=== PATIENT | male | born 1935 | race Caucasian/White ===

== ENCOUNTER 2018-03-27 09:36 | Inpatient (IN) ==
[2018-03-27 09:42] LABS: ABG Base Excess -8.2 mmol/L (-2.4-2.3); ABG HCO3 18.5 mmhg (22.0-26.0); ABG Oxygen Saturation 96 % (90-100); ABG PCO2 39.8 mmhg (35.0-45.0); ABG PH 7.29 mmol/L (7.35-7.45); ABG PO2 90.5 mmhg (80-100); ABG TCO2 19.7 mmhg (23-27)
[2018-03-27 09:43] LABS: Allen's Test ACCEPTABLE; Oxygen 3 LPM %
[2018-03-27 09:46] LABS: Basophils % 0.3 % (0.1-2.0); Eosinophils # 0.1 K/mm3 (0.0-0.4); Eosinophils % 0.6 % (0.1-12.0); Hematocrit 34.7 % (42.0-52.0); Lymphocytes # 0.9 K/mm3 (0.7-4.5); Mean Corpuscular HGB Conc 31.9 g/dL (31.8-35.4); Mean Corpuscular Hemoglobin 27.5 pg (27.0-31.2); Mean Corpuscular Volume 86.4 fl (80-94); Mean Platelet Volume 7.2 fl (7.4-10.4); Monocytes # 0.8 K/mm3 (0.1-1.0); Monocytes % 6.2 % (1.7-9.3); Neutrophils # 11.3 K/mm3 (1.8-7.8); Neutrophils % 85.9 % (37.0-80.0); Platelet Count 211 K/mm3 (142-424); Red Blood Count 4.01 M/mm3 (4.60-6.20); Red Cell Distribution Width 13.9 % (11.5-17.5); White Blood Count 13.2 K/mm3 (4.8-10.8)
[2018-03-27 10:14] LABS: Albumin Level 2.4 gm/dL (3.4-5.0); Albumin/Globulin Ratio 0.5 (1.1-1.8); Anion Gap 13.1 mEq/L (5-15); Bilirubin,Total 0.5 mg/dL (0.2-1.0); Calcium 7.9 mg/dL (8.5-10.1); Globulin 4.5 gm/dl (1.3-3.2); Potassium 5.1 mmoL/L (3.5-5.1); Total Protein,Serum 6.9 gm/dL (6.4-8.2)
--- NOTE | 2018-03-27 10:37 | Emergency Department Note ---
ED Disposition Clinical Impression: Metabolic acidosis, Acute respiratory failure with hypoxia Community acquired pneumonia Qualifiers: Laterality: unspecified laterality Qualified Code(s): J18.9 - Pneumonia, unspecified organism Sepsis Qualifiers: Sepsis type: sepsis due to unspecified organism Qualified Code(s): A41.9 - Sepsis, unspecified organism Acute on chronic renal failure Qualifiers: Acute renal failure type: unspecified Chronic kidney disease stage: unspecified stage Qualified Code(s): N17.9 - Acute kidney failure, unspecified Disposition: Still a Patient Condition on Discharge: Serious Referrals: Trae Weiner MD [Primary Care Provider] - - Critical Care Critical Care Time: Yes Attestation: On 03/27/18, the high probability of a clinically significant, sudden or life threatening deterioration of the following system(s) required my full and direct attention, intervention and personal management. The time I documented below is in addition to time spent performing reported procedures but includes the following listed in this critical care notation. Total Critical Care Time: 35 Vital system(s) involved:: Circulatory Failure, Respiratory Failure, Shock (Septic) My critical care processes included: Assessment & monitoring of V/S, Initial and Re-exams, Data Review/Interpretation, Coordinating Care, Medication Orders and management, Documentation Medical Decision Making - [place] Inquiry Pt receiving controlled substance: No Vital Signs: 03/27/18 09:12 Temperature 97.8 F Temperature Source Oral Pulse Rate [Right Brachial] 87 Respiratory Rate 24 Blood Pressure [Right Arm] 104/72 L Blood Pressure Mean [Right Arm] 82 Blood Pressure Source [Right Arm] Automatic Cuff Blood Pressure Position [Right Arm] Sitting 02 Sat by Pulse Oximetry 88 L Oxygen Delivery Method Room Air - Lab Data Lab Results 03/27/18 09:16: Specimen Source L. radial, O2 % 3 lpm, ABG pH 7.29 L, ABG pCO2 39.8, ABG pO2 90.5, ABG HCO3 18.5 L, ABG Total CO2 19.7 L, ABG O2 Saturation 96, ABG Base Excess -8.2 L, Mark Test Acceptable 03/27/18 09:40: WBC 13.2 H, RBC 4.01 L, Hgb 11.0 L, Hct 34.7 L, MCV 86.4, MCH 27.5, MCHC 31.9, RDW 13.9, Plt Count 211, MPV 7.2 L, Neut % (Auto) 85.9 H, Lymph % (Auto) 7.0 L, [place] % (Auto) 6.2, Eos % (Auto) 0.6, Baso % (Auto) 0.3, Neut # (Auto) 11.3 H, Lymph # (Auto) 0.9, [place] # (Auto) 0.8, Eos # (Auto) 0.1, Baso # (Auto) 0.0, Total Counted 100, Neutrophils % (Manual) 87 H, Band Neutrophils % 1.0, Lymphocytes % (Manual) 5 L, Monocytes % (Manual) 7, Platelet Estimate Normal 03/27/18 09:40: Sodium 130 L, Potassium 5.1, Chloride 97 L, Carbon Dioxide 25, Anion Gap 13.1, BUN 56 H, Creatinine 3.21 H, Estimated Creat Clear 23, Estimated GFR 19 L*, Est GFR ( Amer) 23 L, Glucose 108 H, Calcium 7.9 L, Total Bilirubin 0.5, AST 24, ALT 13, Alkaline Phosphatase 127 H, Total Creatine Kinase 385 H, CK-MB (CK-2) 2.8, CK-MB (CK-2) Rel Index 0.7, Troponin I 0.39 H, Total Protein 6.9, Albumin 2.4 L, Globulin 4.5 H, Albumin/Globulin Ratio 0.5 L 03/27/18 09:40: Lactate 0.7 03/27/18 09:40: B-Natriuretic Peptide 684 H Result diagrams: 03/27/18 09:40 03/27/18 09:40 Orders (Tests/Meds): ED MEDICATIONS Generic Name Dose Route Start Last Admin Trade Name Freq PRN Reason Stop Dose Admin Sodium Chloride 3 ml 03/27/18 09:29 Sodium Chloride 3% 15ml Neb IH 04/26/18 09:28 ONCE PRN INDUCE SPUTUM COLLECTION ORDERS Category Date Time Status Blood Culture Stat Micro 03/27/18 09:40 Received Sputum Culture & Gram Stain Stat Micro 03/27/18 09:35 Received - Radiology Data #1 Image(s): Chest Image Reviewed: Yes I have reviewed radiologist's interpretation Bilateral lower lobe infiltrates, pneumonia - Physician Consults Physician Consulted: Husam Time: 10:40 Reason -: Admission Comment/Response: Agrees to admit the patient to the hospital. We discussed the patient's clinical information, including history, exam, laboratory and radiology results and ED course. Per hospital procedure, I will write temporary bridge inpatient orders on the patient. Specific orders requested by the admitting physician: Antibiotics, IV fluids, nebulizer treatments, oxygen. No steroids. Serial troponins. General Adult HPI - General Chief complaint: Shortness of Breath/Dyspnea Stated complaint: soa Time Seen by Provider: 03/27/18 10:20 Mode of Arrival: EMS Limitations: No Limitations Description of Symptoms (Recalled from ER Triage Doc. by RN): shortness of air - History of Present Illness HPI narrative: Brought in by ambulance. History from family. Patient has a prior history of a stroke with resultant speech problem, unable to be understood per family. Family states that he has declined over the past week. Has a cough producing yellow sputum. Past 2 days has gotten worse. No fever. Today he had an episode where his eyes rolled back in his head and he was drenched in sweat. - Related Data Home Medications Medication Instructions Recorded Confirmed Colestipol HCl 1 gm PO BID 03/27/18 03/27/18 Diphenoxylate HCl/Atropine 2 each PO HS 03/27/18 03/27/18 [Lomotil 2.5-0.025 mg Tablet] Quetiapine Fumarate [Seroquel] 50 mg PO HS 03/27/18 03/27/18 Simvastatin 10 mg PO DAILY 03/27/18 03/27/18 Tamsulosin HCl [Flomax 0.4mg 0.4 mg PO HS 03/27/18 03/27/18 capsule] Allergies Allergy/AdvReac Type Severity Reaction Status Date / Time No Known Allergies Allergy Unverified 05/22/17 15:06 [facility] History I have reviewed the patient's past medical history: Yes - Social History Educational Level: Completed High School Smoking Status: Unknown if ever smoked Alcohol Intake: never - Psychiatric History Expresses thoughts of harming self/others: None Suicide Plan Description: No Plan ROS Obtained: Yes unobtainable due to mental condition (Prior stroke) Physical Exam - General General appearance: alert, in no apparent distress - Head Head exam: atraumatic, normocephalic - Chest Chest inspection: Present: normal inspection, symmetric chest wall rise - Respiratory Respiratory exam: Present: other (Bilateral crackles). Absent: respiratory distress - Cardiovascular Cardiovascular exam: Present: regular rate, normal rhythm - Abdominal Exam Abdominal exam: Present: soft. Absent: distention, tenderness - Extremities Exam Extremities exam: Present: normal inspection - Neurological Exam Neurological exam: Present: alert, other (Right hemiparesis. Dysarthria. Blind in right eye.) - Psychiatric Psychiatric exam: Present: normal affect - Skin Skin exam: Present: warm, dry
[2018-03-27 10:41] LABS: Lymphocytes % 5 % (10-50); Monocytes % 7 % (2-9); Neutrophils % 87 % (42-76); Total Cells Counted 100
--- NOTE | 2018-03-27 11:29 | Pharmacy Consult Notes ---
[facility] Pharmacy VTE Monitoring - Patient Demographics Admission date: 03/27/18 Report Date: 03/27/18 Time: 11:29 Allergies/Adverse Reactions: Patient Allergies No Known Allergies Allergy (Unverified 05/22/17 15:06) Height: 1.78 m Weight: 90.718 kg Patient Problems: Current Active Problems Community acquired pneumonia (Acute) Sepsis (Acute) Acute on chronic renal failure (Acute) Metabolic acidosis (Acute) Acute respiratory failure with hypoxia (Acute) - VTE Risk Labs: VTE Related Lab Results Hgb 11.0 g/dL (14.1-18.0) L 03/27/18 09:40 Hct 34.7 % (42.0-52.0) L 03/27/18 09:40 Plt Count 211 K/mm3 (142-424) 03/27/18 09:40 BUN 56 mg/dL (7-18) H 03/27/18 09:40 Creatinine 3.21 mg/dL (0.70-1.30) H 03/27/18 09:40 Estimated Creat Clear 23 mL/min (0-300) 03/27/18 09:40 - Prophylaxis VTE Prophylaxis Ordered?: Yes Types of VTE Prophylaxis: TEDS Knee High Location of Applied Device: Bilateral Lower Extremeties - VTE Diagnosis Confirmed Treatment or plan recommended: Continue Current Treatment
--- NOTE | 2018-03-27 13:49 | History & Physical Report ---
Addendum entered and electronically signed by Elida Schuster APRN 03/27/18 14:37: Nursing staff called and decided to discuss DNR status further with family. Dr. Weiner will discuss with family later today or on rounds in the am. Original Note: *Admission Date: 03/27/18 *Chief complaint: mental status changes, shortness of breath *History of present illness: 82 year old male with a history of COPD, vascular dementia, ischemic CVA, HTN and hyperlipidemia was transported to the ED for evaluation of weakness, cough and shortness of breath. 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 reports patient has had a productive cough for approx one week. He has become increasingly lethargic over the last few days with minimal fluid intake. No nausea or vomiting. states he "always has diarrhea." Patient had an episode this morning in which he became diaphoretic, unresponsive and "his eyes rolled back in his head." EMS was called and he was transported to the ED. In the ED, he was found to be mildly h ypoxic with saturations 88% on RA. CXR showed bilateral pneumonia with WBC 13.2. He was found to have ARF with BUN/creat 56/3.21. BNP noted at 684 and trop 0.39. Patient was admitted to acute care for IV abx, IV fluids, serial troponins and further evaluation. [facility] History I have reviewed the patient's past medical history: Yes Medical History: Reports:: Chronic Obstructive Pulmonary Disease (COPD), Cerebrovascular Accident, Dementia, Hyperlipidemia, Hypertension Denies:: Diabetes Mellitus Type 1, Diabetes Mellitus Type 2 Other Surgeries: Yes: Other (surgery for aneursym) - *Social History Educational Level: Completed High School Smoking Status: Former smoker Alcohol Intake: never Occupational Status: retired - Psychiatric History Expresses thoughts of harming self/others: None Suicide Plan Description: No Plan *Family Hx:: Unable to obtain Review of Systems - Review of Systems Review of systems:: pertinent systems reviewed and negative unless documented below - Constitutional Reports daytime sleepiness, Reports malaise - *Respiratory Reports chest congestion, Reports cough - *Neurologic Reports confusion, Reports memory loss, Reports weakness Meds Home Medications Medication Instructions Recorded Confirmed Type Colestipol HCl 1 gm PO BID 03/27/18 03/27/18 History Diphenoxylate HCl/Atropine 2 each PO HS 03/27/18 03/27/18 History [Lomotil 2.5-0.025 mg Tablet] Quetiapine Fumarate [Seroquel] 50 mg PO HS 03/27/18 03/27/18 History Simvastatin 10 mg PO DAILY 03/27/18 03/27/18 History Tamsulosin HCl [Flomax 0.4mg 0.4 mg PO HS 03/27/18 03/27/18 History capsule] Allergies Allergy/AdvReac Type Severity Reaction Status Date / Time No Known Allergies Allergy Unverified 05/22/17 15:06 Exam Vital signs and Labs for Last 24 Hours: Temp Pulse Resp BP Pulse Ox 99.0 F 79 19 100/76 L 93 L 03/27/18 11:45 03/27/18 11:45 03/27/18 11:45 03/27/18 11:45 03/27/18 11:45 Laboratory Results - last 24 hr 03/27/18 09:16: Specimen Source L. radial, O2 % 3 lpm, ABG pH 7.29 L, ABG pCO2 39.8, ABG pO2 90.5, ABG HCO3 18.5 L, ABG Total CO2 19.7 L, ABG O2 Saturation 96, ABG Base Excess -8.2 L, Mark Test Acceptable 03/27/18 09:40: WBC 13.2 H, RBC 4.01 L, Hgb 11.0 L, Hct 34.7 L, MCV 86.4, MCH 27.5, MCHC 31.9, RDW 13.9, Plt Count 211, MPV 7.2 L, Neut % (Auto) 85.9 H, Lymph % (Auto) 7.0 L, [place] % (Auto) 6.2, Eos % (Auto) 0.6, Baso % (Auto) 0.3, Neut # (Auto) 11.3 H, Lymph # (Auto) 0.9, [place] # (Auto) 0.8, Eos # (Auto) 0.1, Baso # (Auto) 0.0, Total Counted 100, Neutrophils % (Manual) 87 H, Band Neutrophils % 1.0, Lymphocytes % (Manual) 5 L, Monocytes % (Manual) 7, Platelet Estimate Normal 03/27/18 09:40: Sodium 130 L, Potassium 5.1, Chloride 97 L, Carbon Dioxide 25, Anion Gap 13.1, BUN 56 H, Creatinine 3.21 H, Estimated Creat Clear 23, Estimated GFR 19 L*, Est GFR ( Amer) 23 L, Glucose 108 H, Calcium 7.9 L, Total Bilirubin 0.5, AST 24, ALT 13, Alkaline Phosphatase 127 H, Total Creatine Kinase 385 H, CK-MB (CK-2) 2.8, CK-MB (CK-2) Rel Index 0.7, Troponin I 0.39 H, Total Protein 6.9, Albumin 2.4 L, Globulin 4.5 H, Albumin/Globulin Ratio 0.5 L 03/27/18 09:40: Lactate 0.7 03/27/18 09:40: B-Natriuretic Peptide 684 H I & O for Last 24 hours: Intake & Output 03/25/18 03/26/18 03/27/18 03/28/18 11:59 11:59 11:59 11:59 Intake Total 100 / 100 Balance 100 / 100 Weight 199 lb 5 oz Microbiology Reports for the Last 24 Hours: Microbiology 03/27/18 09:35 Sputum - Expectorated Sputum Gram Stain - Final Narrative: Alert but drowsy. Opens eye to name. Follows simple commands. Skin pale, warm and dry. Minimal right sided weakness. Speech difficult to understand at baseline. RRR, 1+ BLE edema. Lung sounds with loose rhonchi anteriorly. ENT exam unremarkable. Abdomen soft and nontender. Assessment and Plan (1) Acute on chronic renal failure Current visit: Yes Status: Acute Qualifiers: Acute renal failure type: unspecified Chronic kidney disease stage: unspecified stage Qualified Code(s): N17.9 - Acute kidney failure, unspecified ; N18.9 - Chronic kidney disease, unspecified Category: Medical Code(s): N17.9 - Acute kidney failure, unspecified; N18.9 - Chronic kidney disease, unspecified (2) Acute respiratory failure with hypoxia Current visit: Yes Status: Acute Category: Medical Code(s): J96.01 - Acute respiratory failure with hypoxia (3) Community acquired pneumonia Current visit: Yes Status: Acute Qualifiers: Laterality: unspecified laterality Qualified Code(s): J18.9 - Pneumonia, unspecified organism Category: Medical Code(s): J18.9 - Pneumonia, unspecified organism (4) Metabolic acidosis Current visit: Yes Status: Acute Category: Medical Code(s): E87.2 - Acidosis (5) Dementia Current visit: Yes Status: Acute Qualifiers: Dementia type: vascular dementia Dementia behavioral disturbance: with behavioral disturbance Qualified Code(s): F01.51 - Vascular dementia with behavioral disturbance Category: Medical Code(s): F03.90 - Unspecified dementia without behavioral disturbance (6) Elevated troponin Current visit: Yes Status: Acute Category: Medical Code(s): R74.8 - Abnormal levels of other serum enzymes - Assessment and plan all Dx Assessment and Plan for all problems:: Community acquired pneumonia protocol in place. IVF's for hydration. Will recheck BMP in the am. Will obtain serial troponins. Discussed code status with family, DNR paperwork was completed by and placed on the chart.
[2018-03-28 07:41] LABS: Basophils % 0.2 % (0.1-2.0); Eosinophils # 0.1 K/mm3 (0.0-0.4); Eosinophils % 0.9 % (0.1-12.0); Hematocrit 30.4 % (42.0-52.0); Hemoglobin 9.9 g/dL (14.1-18.0); Lymphocytes # 1.1 K/mm3 (0.7-4.5); Lymphocytes % 9.5 K/mm3 (10-50); Mean Corpuscular HGB Conc 32.6 g/dL (31.8-35.4); Mean Corpuscular Hemoglobin 27.9 pg (27.0-31.2); Mean Corpuscular Volume 85.8 fl (80-94); Mean Platelet Volume 7.1 fl (7.4-10.4); Monocytes # 1.2 K/mm3 (0.1-1.0); Monocytes % 10.3 % (1.7-9.3); Neutrophils # 8.8 K/mm3 (1.8-7.8); Platelet Count 180 K/mm3 (142-424); Red Blood Count 3.55 M/mm3 (4.60-6.20); White Blood Count 11.2 K/mm3 (4.8-10.8)
[2018-03-28 07:47] LABS: Calcium 7.2 mg/dL (8.5-10.1)
--- NOTE | 2018-03-28 09:02 | Progress Note ---
Internal Medicine - PN: Subj *Date: 03/28/18 *Time: 07:30 Interval history: Patient is more alert this morning. Sitting up in bed being fed breakfast by his daughter. Urine output has improved, he has been up to the BS x 2 this morning Alert and oriented to self. Rate and rhythm regular. Lung sounds with diffuse rhonchi/wheezes, air movement improved. Abdomen soft and nontender Exam Vital signs and Labs for Last 24 Hours: Temp Pulse Resp BP Pulse Ox 98.1 F 93 H 20 122/64 96 03/28/18 07:32 03/28/18 07:32 03/28/18 07:32 03/28/18 07:32 03/28/18 07:32 Laboratory Results - last 24 hr 03/27/18 09:16: Specimen Source L. radial, O2 % 3 lpm, ABG pH 7.29 L, ABG pCO2 39.8, ABG pO2 90.5, ABG HCO3 18.5 L, ABG Total CO2 19.7 L, ABG O2 Saturation 96, ABG Base Excess -8.2 L, Mark Test Acceptable 03/27/18 09:40: WBC 13.2 H, RBC 4.01 L, Hgb 11.0 L, Hct 34.7 L, MCV 86.4, MCH 27.5, MCHC 31.9, RDW 13.9, Plt Count 211, MPV 7.2 L, Neut % (Auto) 85.9 H, Lymph % (Auto) 7.0 L, [place] % (Auto) 6.2, Eos % (Auto) 0.6, Baso % (Auto) 0.3, Neut # (Auto) 11.3 H, Lymph # (Auto) 0.9, [place] # (Auto) 0.8, Eos # (Auto) 0.1, Baso # (Auto) 0.0, Total Counted 100, Neutrophils % (Manual) 87 H, Band Neutrophils % 1.0, Lymphocytes % (Manual) 5 L, Monocytes % (Manual) 7, Platelet Estimate Normal 03/27/18 09:40: Sodium 130 L, Potassium 5.1, Chloride 97 L, Carbon Dioxide 25, Anion Gap 13.1, BUN 56 H, Creatinine 3.21 H, Estimated Creat Clear 23, Estimated GFR 19 L*, Est GFR ( Amer) 23 L, Glucose 108 H, Calcium 7.9 L, Total Bilirubin 0.5, AST 24, ALT 13, Alkaline Phosphatase 127 H, Total Creatine Kinase 385 H, CK-MB (CK-2) 2.8, CK-MB (CK-2) Rel Index 0.7, Troponin I 0.39 H, Total Protein 6.9, Albumin 2.4 L, Globulin 4.5 H, Albumin/Globulin Ratio 0.5 L 03/27/18 09:40: Lactate 0.7 03/27/18 09:40: B-Natriuretic Peptide 684 H 03/27/18 13:55: Troponin I 0.61 H 03/27/18 17:10: Troponin I 0.64 H 03/28/18 07:22: WBC 11.2 H, RBC 3.55 L, Hgb 9.9 L, Hct 30.4 L, MCV 85.8, MCH 27.9, MCHC 32.6, RDW 14.0, Plt Count 180, MPV 7.1 L, Neut % (Auto) 79.0, Lymph % (Auto) 9.5 L, [place] % (Auto) 10.3 H, Eos % (Auto) 0.9, Baso % (Auto) 0.2, Neut # (Auto) 8.8 H, Lymph # (Auto) 1.1, [place] # (Auto) 1.2 H, Eos # (Auto) 0.1, Baso # (Auto) 0.0 03/28/18 07:22: Sodium 134 L, Potassium 5.0, Chloride 104, Carbon Dioxide 19 L D , Anion Gap 16.0 H, BUN 48 H, Creatinine 2.44 H D, Estimated Creat Clear 30, Estimated GFR 26 L, Est GFR ( Amer) 31 L D, Glucose 102, Calcium 7.2 L I & O for Last 24 hours: Intake & Output 03/25/18 03/26/18 03/27/18 03/28/18 11:59 11:59 11:59 11:59 Intake Total 100 / 100 3020 / 3020 Output Total 50 / 50 Balance 100 / 100 2970 / 2970 Weight 199 lb 5 oz Microbiology Reports for the Last 24 Hours: Microbiology 03/27/18 09:35 Sputum - Expectorated Sputum Gram Stain - Final 03/27/18 09:35 Sputum - Expectorated Sputum Sputum Culture - Preliminary Assessment and Plan (1) Acute on chronic renal failure Current visit: Yes Status: Acute Qualifiers: Acute renal failure type: unspecified Chronic kidney disease stage: unspecified stage Qualified Code(s): N17.9 - Acute kidney failure, unspecified; N18.9 - Chronic kidney disease, unspecified Category: Medical Code(s): N17.9 - Acute kidney failure, unspecified; N18.9 - Chronic kidney disease, unspecified (2) Acute respiratory failure with hypoxia Current visit: Yes Status: Acute Category: Medical Code(s): J96.01 - Acute respiratory failure with hypoxia (3) Community acquired pneumonia Current visit: Yes Status: Acute Qualifiers: Laterality: unspecified laterality Qualified Code(s): J18.9 - Pneumonia, unspecified organism Category: Medical Code(s): J18.9 - Pneumonia, unspecified organism (4) Metabolic acidosis Current visit: Yes Status: Acute Category: Medical Code(s): E87.2 - Acidosis (5) Dementia Current visit: Yes Status: Acute Qualifiers: Dementia type: vascular dementia Dementia behavioral disturbance: with behavioral disturbance Qualified Code(s): F01.51 - Vascular dementia with behavioral disturbance Category: Medical Code(s): F03.90 - Unspecified dementia without behavioral disturbance (6) Elevated troponin Current visit: Yes Status: Acute Category: Medical Code(s): R74.8 - A bnormal levels of other serum enzymes - Assessment and plan all Dx Assessment and Plan for all problems:: Continue IV antibiotics. Creatinine improving, noted at 2.44. Continue IVF's at current rate. Trop peaked at 0.64 which is likely related to his ARF. Will obtain Echo and PT/OT consult today.
--- NOTE | 2018-03-28 15:41 | Cardiology Report ---
PROCEDURE: 2-D M-mode and color Doppler study INDICATIONS FOR THE TEST: Chest pain COPDX Heart Murmur Tobacco Smoking Palpitations Fatigue Syncope Edema HypertensionXDiabetes Mellitus Rheumatic Fever SOBXDOEXObesityXHyperlipidemiaX Family History HD Additional History ELEVATED TROPONINS LIMITED EXAM, POOR ACOUSTIC WINDOWS ALL IMAGES FROM SUBCOSTAL PLANE PATIENT INFORMATION HEIGHT: 74 WEIGHT:199 GENDER: Male B/P:100/76 2-D/M-MODE INTERPRETATION: 2-D MEASUREMENTS OBSERVED VALUES IN CMS Right Ventricular Dimension (RVDd) 4.3 Interventricular Septum (Thickness)(IVsd) 1.1 Left Ventricular Internal Dimensions(LVIDd) 4.4 Left Ventricular Posterior Wall (Thickness)(LVPWd) 1.2 Aortic Root Aortic Cusp Separation 2.1 Left Atrial Dimensions (LAD) 2D 1. Technically difficult study because of the patient's factor and poor acoustic windows. The left ventricle is normal size, mild concentric left ventricular hypertrophy, visually estimated ejection fraction of 50% with no regional wall motion abnormality, there is abnormal septal motion. 2. The right atrium and right ventricle are moderately enlarged, contractility of the right ventricle is mildly reduced. 3. The aortic valve is minimally thickened and fibrosed. 4. The mitral and tricuspid valvular grossly normal. 5. The pulmonic valve is poorly visualized. 6. No significant pericardial effusion noted. DOPPLER INTERROGATION: Doppler interrogation of the aortic, mitral and tricuspid valvular presence of mild mitral and tricuspid regurgitation, calculated right ventricular systolic pressure is 64 mmHg consistent with moderate pulmonary hypertension, grade 1 diastolic dysfunction seen without tissue Doppler evidence of raised left atrial pressure. CONCLUSION 1. Technically difficult study because of the patient's factor and poor acoustic windows 2. Normal left ventricular size, preserved left ventricular systolic function, visually estimated ejection fraction of 50%, there is abnormal septal motion. Grade 1 diastolic dysfunction seen without tissue Doppler evidence of raised left atrial pressure. 3. Moderately enlarged right ventricle with mild reduced contractility. 4. Mild mitral and tricuspid regurgitation, calculated right ventricular systolic pressure is 64 mmHg consistent with the moderate pulmonary hypertension. 5. No significant pericardial effusion noted.
--- NOTE | 2018-03-29 12:29 | Progress Note ---
Internal Medicine - PN: Subj *Date: 03/29/18 *Time: 08:00 Interval history: Patient continued to require oxygen overnight. Remained afebrile and hemodynamically stable. Poor p.o. intake of medications this morning. Still quite weak and fatigued. Family auto body shop manager at bedside who say patient is still off of his baseline level of function. No nausea, vomiting, diarrhea, chest pain, worsening shortness of breath. Exam Vital signs and Labs for Last 24 Hours: Temp Pulse Resp BP Pulse Ox 97.5 F L 81 22 123/75 95 03/29/18 08:00 03/29/18 10:11 03/29/18 08:00 03/29/18 08:00 03/29/18 10:12 I & O for Last 24 hours: Intake & Output 03/26/18 03/27/18 03/28/18 03/29/18 23:59 23:59 23:59 23:59 Intake Total 3120 / 3120 3488 / 3488 480 / 480 Output Total 50 / 50 400 / 400 Balance 3070 / 3070 3088 / 3088 480 / 480 Weight 90.407 kg Microbiology Reports for the Last 24 Hours: Microbiology 03/27/18 09:40 Blood Blood Culture - Preliminary NO GROWTH AFTER 48 HOURS 03/27/18 09:40 Blood Blood Culture - Preliminary NO GROWTH AFTER 48 HOURS 03/27/18 09:35 Sputum - Expectorated Sputum Gram Stain - Final 03/27/18 09:35 Sputum - Expectorated Sputum Sputum Culture - Preliminary - *Routine HEENT Exam Head: Present: normocephalic, atraumatic ENT: Present: mucous membranes moist Comments: Nasal cannula in place - *Routine Neck Exam Present: supple, full ROM. Absent: lymphadenopathy - *Routine Respiratory Exam Present: prolonged expiratory phase, wheezes, crackles. Absent: accessory mu scle use - *Routine Cardiovascular Exam Present: RRR, Normal S1 - *Routine Abdominal Exam Present: soft, normoactive bowel sounds - *Routine Rectal Exam Patient deferred: visual exam - *Routine Exam Patient deferred: penile exam - *Routine Extremities Exam Present: edema. Absent: cyanosis, clubbing - *Routine Skin Exam Present: intact. Absent: cyanosis - *Routine Neurological Exam Present: alert Oriented to person Assessment and Plan (1) Acute on chronic renal failure Current visit: Yes Status: Acute Qualifiers: Acute renal failure type: unspecified Chronic kidney disease stage: unspecified stage Qualified Code(s): N17.9 - Acute kidney failure, unspecified; N18.9 - Chronic kidney disease, unspecified Category: Medical Code(s): N17.9 - Acute kidney failure, unspecified; N18.9 - Chronic kidney disease, unspecified Continue fluid rehydration, repeat labs in the morning. Creatinine gradually improving (2) Acute respiratory failure with hypoxia Current visit: Yes Status: Acute Category: Medical Code(s): J96.01 - Acute respiratory failure with hypoxia (3) Community acquired pneumonia Current visit: Yes Status: Acute Qualifiers: Laterality: unspecified laterality Qualified Code(s): J18.9 - Pneumonia, unspecified organism Category: Medical Code(s): J18.9 - Pneumonia, unspecified organism Continue antibiotics -Transition to azithromycin oral -Continue ceftriaxone IV -Oxygen as needed, trial off oxygen today to see if qualifies for home O2 -Goal O2 sats greater than 88 while asleep, greater than 92 while awake (4) Metabolic acidosis Current visit: Yes Status: Acute Category: Medical Code(s): E87.2 - Acidosis (5) Dementia Current visit: Yes Status: Acute Qualifiers: Dementia type: vascular dementia Dementia behavioral disturbance: with behavioral disturbance Qualified Code(s): F01.51 - Vascular dementia with behavioral disturbance Category: Medical Code(s): F03.90 - Unspecified dementia without behavioral disturbance (6) Elevated troponin Current visit: Yes Status: Acute Category: Medical Code(s): R74.8 - Abnormal levels of other serum enzymes Stable, no ST changes on EKG. Suspect type II end STEMI. In setting of renal dysfunction and the fact troponins to be slightly elevated and slow to clear. Given asymptomatic, will defer to cardiology consult at this time. -Optimize blood pressure management -We will not hesitate to consult cards if develops cardiovascular symptoms such as chest pain
[2018-03-30 07:16] LABS: Basophils % 0.2 % (0.1-2.0); Eosinophils # 0.1 K/mm3 (0.0-0.4); Eosinophils % 1.2 % (0.1-12.0); Hematocrit 30.8 % (42.0-52.0); Hemoglobin 9.8 g/dL (14.1-18.0); Lymphocytes # 0.6 K/mm3 (0.7-4.5); Lymphocytes % 7.5 K/mm3 (10-50); Mean Corpuscular HGB Conc 31.7 g/dL (31.8-35.4); Mean Corpuscular Hemoglobin 27.9 pg (27.0-31.2); Mean Platelet Volume 6.5 fl (7.4-10.4); Monocytes % 12.1 % (1.7-9.3); Neutrophils # 6.7 K/mm3 (1.8-7.8); Platelet Count 215 K/mm3 (142-424); Red Blood Count 3.51 M/mm3 (4.60-6.20); White Blood Count 8.5 K/mm3 (4.8-10.8)
[2018-03-30 07:24] LABS: Anion Gap 14.5 mEq/L (5-15); Calcium 7.6 mg/dL (8.5-10.1); Potassium 4.5 mmoL/L (3.5-5.1)
--- NOTE | 2018-03-30 07:46 | Progress Note ---
Internal Medicine - PN: Subj *Date: 03/30/18 *Time: 07:42 Interval history: Patient rested well overnight but had a new development of some gross hematuria noted by his son and nursing staff. Patient denies pain with urination. Patient was able to transfer with maximum assistance to the bedside commode. He has not been able to sit up in a chair or do any kind of self-care activities. Exam Vital signs and Labs for Last 24 Hours: Temp Pulse Resp BP Pulse Ox 97.7 F 103 H 22 119/56 L 91 L 03/30/18 04:00 03/30/18 06:40 03/30/18 04:00 03/30/18 04:00 03/30/18 06:40 Laboratory Results - last 24 hr 03/30/18 06:45: WBC 8.5, RBC 3.51 L, Hgb 9.8 L, Hct 30.8 L, MCV 88.0, MCH 27.9, MCHC 31.7 L, RDW 14.0, Plt Count 215, MPV 6.5 L, Neut % (Auto) 79.0, Lymph % (Auto) 7.5 L, Gregory % (Auto) 12.1 H, Eos % (Auto) 1.2, Baso % (Auto) 0.2, Neut # (Auto) 6.7, Lymph # (Auto) 0.6 L, Gregory # (Auto) 1.0, Eos # (Auto) 0.1, Baso # (Auto) 0.0 03/30/18 06:45: Sodium 138, Potassium 4.5, Chloride 108 H, Carbon Dioxide 20 L, Anion Gap 14.5, BUN 26 H D, Creatinine 1.57 H D, Estimated Creat Clear 46, Estimated GFR 43 L, Est GFR ( Amer) 51 L D, Glucose 115 H, Calcium 7.6 L, Magnesium 1.7 I & O for Last 24 hours: Intake & Output 03/27/18 03/28/18 03/29/18 03/30/18 11:59 11:59 11:59 11:59 Intake Total 100 / 100 3500 / 3500 3488 / 3488 4528 / 4528 Output Total 450 / 450 125 / 125 Balance 100 / 100 3050 / 3050 3488 / 3488 4403 / 4403 Weight 199 lb 5 oz Microbiology Reports for the Last 24 Hours: Microbiology 10/24/18 09:40 Blood Blood Culture - Preliminary NO GROWTH AFTER 48 HOURS 03/27/18 09:40 Blood Blood Culture - Preliminary NO GROWTH AFTER 48 HOURS Narrative: Patient is pleasant, will respond to to 1 word commands and shake his head, but otherwise is unable to carry on significant conversation. Oropharynx is moist but clear, no JVD. His lungs have rhonchi throughout. O2 by nasal cannula at 2 L noted. Heart rate regular. Exam compromised by abnormal lung sounds. Abdomen soft and nontender. Extremities with trace ankle edema. No sacral edema. Moves all 4 extremities symmetrically but is extremely weak. Assessment and Plan (1) Acute on chronic renal failure Current visit: Yes Status: Acute Qualifiers: Acute renal failure type: unspecified Chronic kidney disease stage: unspecified stage Qualified Code(s): N17.9 - Acute kidney failure, unspecified; N18.9 - Chronic kidney disease, unspecified Category: Medical Code(s): N17.9 - Acute kidney failure, unspecified; N18.9 - Chronic kidney disease, unspecified Creatinine has improved slightly. Monitor tomorrow morning. (2) Acute respiratory failure with hypoxia Current visit: Yes Status: Acute Category: Medical Code(s): J96.01 - Acute respiratory failure with hypoxia Patient apparently does not have O2 therapy at home, room air saturation this morning 84%. We will continue O2 at 2 L. He will need home oxygen arranged. (3) Community acquired pneumonia Current visit: Yes Status: Acute Qualifiers: Laterality: unspecified laterality Qualified Code(s): J18.9 - Pneumonia, unspecified organism Category: Medical Code(s): J18.9 - Pneumonia, unspecified organism Cultures of blood and sputum nondiagnostic. Continue current IV antibiotics until discharge. (4) Metabolic acidosis Current visit: Yes Status: Acute Category: Medical Code(s): E87.2 - Acidosis (5) Dementia Current visit: Yes Status: Acute Qualifiers: Dementia type: vascular dementia Dementia behavioral disturbance: with behavioral disturbance Qualified Code(s): F01.51 - Vascular dementia with behavioral disturbance Category: Medical Code(s): F03.90 - Unspecified dementia without behavioral disturbance Significant comorbidities. I am very apprehensive about patient being able to be discharged to the care of the family today as previously planned. We will see how his family does with his care today, if they are comfortable going home with palliative care and p.o. antibiotics over the weekend we will assist with this. (6) Elevated troponin Current visit: Yes Status: Acute Category: Medical Code(s): R74.8 - Abnormal levels of other serum enzymes (7) Gross hematuria Current visit: Yes Status: Acute Category: Medical Code(s): R31.0 - Gross hematuria Unclear etiology, check urinalysis, check BMP this morning
[2018-03-30 12:12] LABS: Microscopic, Urine URINE MICROSCOPIC (MICROSCOPIC)
[2018-03-30 12:14] LABS: Appearance,Urine CLEAR (Clear); Bilirubin,Urine Negative (Negative); Blood, Urine 2+ (Negative); Color,Urine YELLOW (Yellow); Glucose,Urine (UA) Negative (Negative); Ketones,Urine Negative (Negative); Leukocyte Esterase,Urine Negative (Negative); Protein,Urine 1+ (Negative); Specific Gravity, Urine 1.015 (1.005-1.030); Urobilinogen,Urine 0.2 EU/dl (0.2)
[2018-03-30 12:31] LABS: Amorphous Sediment,Urine 1+ /lpf; Bacteria,Urine 1+ /lpf
--- NOTE | 2018-03-31 08:10 | Progress Note ---
Internal Medicine - PN: Subj *Date: 03/31/18 *Time: 08:07 Interval history: Patient had a significant status change overnight, starting with some confusion and disorientation in the and into the evening, and then becoming increasingly somnolent, increasing oxygen requirement and progressing to obtundation. EKG showed significant sinus bradycardia, blood pressure dropped into the 80s. Nursing staff increase his oxygen flow by facemask, and this has improved his O2 and blood pressure. However, he remains somnolent. Case discussed with family. They do not wish aggressive workup to find the cause of his change, and we have transitioned into palliative care for what appears to be a terminal phase of his illnesses. Exam Vital signs and Labs for Last 24 Hours: Temp Pulse Resp BP Pulse Ox 98.1 F 84 30 H 120/67 94 L 03/31/18 04:00 03/31/18 05:38 03/31/18 04:00 03/31/18 04:00 03/31/18 05:38 Laboratory Results - last 24 hr 03/30/18 12:06: Urine Color Yellow, Urine Appearance Clear, Urine pH 6.0, Ur Specific [place] 1.015, Urine Protein 1+, Urine Glucose (UA) Negative, Urine Ketones Negative, Urine Blood 2+, Urine Nitrate Negative, Urine Bilirubin Negative, Urine Urobilinogen 0.2, Ur Leukocyte Esterase Negative, Urine RBC 10- 20, Urine WBC 3-5, Amorphous Sediment 1+, Urine Bacteria 1+, Fine Granular Casts 3-5 I & O for Last 24 hours: Intake & Output 03/28/18 03/29/18 03/30/18 03/31/18 11:59 11:59 11:59 11:59 Intake Total 3500 / 3500 3488 / 3488 4528 / 4528 Output Total 450 / 450 125 / 125 300 / 300 Balance 3050 / 3050 3488 / 3488 4403 / 4403 -300 / -300 Microbiology Reports for the Last 24 Hours: Microbiology 03/27/18 09:35 Sputum - Expectorated Sputum Gram Stain - Final 03/27/18 09:35 Sputum - Expectorated Sputum Sputum Culture - Preliminary Haemophilus parainfluenzae Narrative: Patient is resting comfortably. Multiple family members at bedside. Discussed case with , daughters and son. They are in agreement about palliative care treatment. Patient is unresponsive except to deep tactile stimuli. Oropharynx is dry but clear. No JVD noted. His respiratory efforts are shallow. He is wearing facemask oxygen. He has cool extremities. Heart rate is regular in the low 80s. Abdomen is soft. Assessment and Plan (1) Acute on chronic renal failure Current visit: Yes Status: Acute Qualifiers: Acute renal failure type: unspecified Chronic kidney disease stage: unspecified stage Qualified Code(s): N17.9 - Acute kidney failure, unspecified; N18.9 - Chronic kidney disease, unspecified Category: Medical Code(s): N17.9 - Acute kidney failure, unspecified; N18.9 - Chronic kidney disease, unspecified (2) Acute respiratory failure with hypoxia Current visit: Yes Status: Acute Category: Medical Code(s): J96.01 - Acute respiratory failure with hypoxia (3) Community acquired pneumonia Current visit: Yes Status: Acute Qualifiers: Laterality: unspecified laterality Qualified Code(s): J18.9 - Pneumonia, un specified organism Category: Medical Code(s): J18.9 - Pneumonia, unspecified organism (4) Metabolic acidosis Current visit: Yes Status: Acute Category: Medical Code(s): E87.2 - Acidosis (5) Dementia Current visit: Yes Status: Acute Qualifiers: Dementia type: vascular dementia Dementia behavioral disturbance: with behavioral disturbance Qualified Code(s): F01.51 - Vascular dementia with behavioral disturbance Category: Medical Code(s): F03.90 - Unspecified dementia without behavioral disturbance (6) Elevated troponin Current visit: Yes Status: Acute Category: Medical Code(s): R74.8 - Abnormal levels of other serum enzymes (7) Gross hematuria Current visit: Yes Status: Acute Category: Medical Code(s): R31.0 - Gross hematuria - Assessment and plan all Dx Assessment and Plan for all problems:: Above medical conditions have deteriorated. Patient is in terminal phase of his disease, palliative/terminal care initiated
--- NOTE | 2018-03-31 10:18 | Progress Note ---
Internal Medicine - PN: Subj *Date: 03/31/18 *Time: 10:17 Exam Vital signs and Labs for Last 24 Hours: Temp Pulse Resp BP Pulse Ox 98.1 F 110 H 30 H 120/67 93 L 03/31/18 04:00 03/31/18 08:00 03/31/18 04:00 03/31/18 04:00 03/31/18 08:00 Laboratory Results - last 24 hr 03/30/18 12:06: Urine Color Yellow, Urine Appearance Clear, Urine pH 6.0, Ur Specific [place] 1.015, Urine Protein 1+, Urine Glucose (UA) Negative, Urine Ketones Negative, Urine Blood 2+, Urine Nitrate Negative, Urine Bilirubin Negative, Urine Urobilinogen 0.2, Ur Leukocyte Esterase Negative, Urine RBC 10- 20, Urine WBC 3-5, Amorphous Sediment 1+, Urine Bacteria 1+, Fine Granular Casts 3-5 I & O for Last 24 hours: Intake & Output 03/28/18 03/29/18 03/30/18 03/31/18 23:59 23:59 23:59 23:59 Intake Total 3488 / 3488 1680 / 1680 3328 / 3328 Output Total 400 / 400 75 / 75 350 / 350 Balance 3088 / 3088 1605 / 1605 2978 / 2978 Microbiology Reports for the Last 24 Hours: Microbiology 03/27/18 09:35 Sputum - Expectorated Sputum Gram Stain - Final 03/27/18 09:35 Sputum - Expectorated Sputum Sputum Culture - Preliminary Haemophilus parainfluenzae Assessment and Plan (1) Acute on chronic renal failure Current visit: Yes Status: Acute Qualifiers: Acute renal failure type: unspecified Chronic kidney disease stage: unspecified stage Qualified Code(s): N17.9 - Acute kidney failure, unspecified; N18.9 - Chronic kidney disease, unspecified Category: Medical Code(s): N17.9 - Acute kidney failure, unspecified; N18.9 - Chronic kidney disease, unspecified (2) Acute respiratory failure with hypoxia Current visit: Yes Status: Acute Category: Medical Code(s): J96.01 - Acute respiratory failure with hypoxia (3) Community acquired pneumonia Current visit: Yes Status: Acute Qualifiers: Laterality: unspecified laterality Qualified Code(s): J18.9 - Pneumonia, unspecified organism Category: Medical Code(s): J18.9 - Pneumonia, unspecified organism (4) Metabolic acidosis Current visit: Yes Status: Acute Category: Medical Code(s): E87.2 - Acidosis (5) Dementia Current visit: Yes Status: Acute Qualifiers: Dementia type: vascular dementia Dementia behavioral disturbance: with behavioral disturbance Qualified Code(s): F01.51 - Vascular dementia with behavioral disturbance Category: Medical Code(s): F03.90 - Unspecified dementia without behavioral disturbance (6) Elevated troponin Current visit: Yes Status: Acute Category: Medical Code(s): R74.8 - Abnormal levels of other serum enzymes (7) Gross hematuria Current visit: Yes Status: Acute Category: Medical Code(s): R31.0 - Gross hematuria The patient's infection will respond to the chosen ABx?: Yes Is the patient receiving the right drug, dose, and route?: Yes Could a more targeted ABx be ordered?: No (ABX HAVE BEEN D/C'D. PATIENT SWITCHED TO PALLIATIVE CARE)
--- NOTE | 2018-04-01 08:52 | Discharge Summary ---
General - General Admission date:: 03/27/18 Discharge date: 03/31/18 HPI HPI: 82 year old male with a history of COPD, vascular dementia, ischemic CVA, HTN and hyperlipidemia was transported to the ED for evaluation of weakness, cough and shortness of breath. 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 reports patient has had a productive cough for approx one week. He has become increasingly lethargic over the last few days with minimal fluid intake. No nausea or vomiting. states he "always has diarrhea." Patient had an episode this morning in which he became diaphoretic, unresponsive and "his eyes rolled back in his head." EMS was called and he was transported to the ED. In the ED, he was found to be mildly hypoxic with saturations 88% on RA. CXR showed bilateral pneumonia with WBC 13.2. He was found to have ARF with BUN/creat 56/3.21. BNP noted at 684 and trop 0.39. Patient was admitted to acute care for IV abx, IV fluids, serial troponins and further evaluation. Hospital Course Hospital Course: Patient was admitted and initially did better with IV antibiotics for bilateral lower lobe pneumonia and improving creatinine on IV fluids. Patient had significant comorbidities of poor mobility, mental status changes with dementia issues and chronic kidney disease with superimposed acute kidney injury. Patient's oxygen status continued to be a problem, but this was ameliorated by nasal cannula oxygen. Patient initial improvement prompted discharge planning with the family for discharge with home health and family support in patient's home environment to continue palliative care after his antibiotics were finished for his pneumonia issues. However the morning of planned discharge patient had had a significant change with problems with mental status changes overnight, agitation and confusion and worsening oxygen requirement on the morning of . This prompted a change in his discharge plan. I had a conversation with his , and all 3 children who wished their father not to be put through a significant workup such as CT scan or workup for lung clots to determine the etiology of his worsening mental status and worsening oxygenation therapy. At that point we shifted focus to palliative care. Patient continued to worsen throughout the day worsening oxygenation status and worsening renal output, and from multiorgan failure on 03/31/18 at 1330. In accordance with his family's wishes no aggressive resuscitative measures were undertaken. Objective Vital signs: Temp Pulse Resp BP Pulse Ox 98.1 F 80 30 H 120/67 93 L 03/31/18 04:00 03/31/18 12:00 03/31/18 04:00 03/31/18 04:00 03/31/18 08:00 Narrative: See exam note from progress note earlier on the day of . Results Labs on day of discharge: Preliminary micro results at discharge 03/30/18 12:06 Urine Culture - Preliminary Urine,Clean Catch NO GROWTH AFTER 24 HOURS 03/27/18 09:40 Blood Culture - Preliminary Blood NO GROWTH AFTER 48 HOURS 03/27/18 09:40 Blood Culture - Preliminary Blood NO GROWTH AFTER 48 HOURS DS: Diagnosis - Discharge Diagnosis (1) Acute on chronic renal failure Status: Acute (2) Acute respiratory failure with hypoxia Status: Acute (3) Community acquired pneumonia Status: Acute (4) Metabolic acidosis Status: Acute (5) Dementia Status: Acute (6) Elevated troponin Status: Acute (7) Gross hematuria Status: Acute Discharge Plan - Patient Discharge Instructions Patient Instructions: Pneumonia-Adult, DI for Sepsis -- Adult, How to Manage Shortness of Breath - Follow up Plan Disposition: Home Medications: Home Medications Medication Instructions Recorded Confirmed Type Aspirin [Aspir 81] 81 mg PO DAILY 03/27/18 03/27/18 History Bisoprolol Fumarate [Bisoprolol 10 mg PO DAILY 03/27/18 03/27/18 History 10mg Tablet] Colestipol HCl 1 gm PO BID 03/27/18 03/27/18 History Diphenoxylate HCl/Atropine 2 each PO HS 03/27/18 03/27/18 History [Lomotil 2.5-0.025 mg Tablet] Quetiapine Fumarate [Seroquel] 50 mg PO HS 03/27/18 03/27/18 History Simvastatin 10 mg PO HS 03/27/18 03/27/18 History Tamsulosin HCl [Flomax 0.4mg 0.4 mg PO HS 03/27/18 03/27/18 History capsule] Prescriptions/Medication Reconciliation: No Action Simvastatin 10 mg PO HS Quetiapine Fumarate [Seroquel] 50 mg PO HS Diphenoxylate HCl/Atropine [Lomotil 2.5-0.025 mg Tablet] 2 each PO HS Colestipol HCl 1 gm PO BID Tamsulosin HCl [Flomax 0.4mg capsule] 0.4 mg PO HS Bisoprolol Fumarate [Bisoprolol 10mg Tablet] 10 mg PO DAILY Aspirin [Aspir 81] 81 mg PO DAILY
== END 2018-03-31 13:40 | disposition expired ==
LOC: ER 09:36 → 2ND 10:48
PROVIDERS: ADMIT Internal Medicine Adolescent Medicine; ATTEND Internal Medicine Adolescent Medicine
CPT/HCPCS: 36415; 71010; 71045; 80048; 80053; 81001; 82550; 82553; 82803; 83605; 83735; 83880; 84484; 85007; 85025; 87040; 87070; 87077; 87086; 87205; 93005; 93306; 94640; 94761; 96365; 96375; 97116; 97162; 97530; 99284; J0456